=== PATIENT | female | born 2005 | race Caucasian/White ===

== ENCOUNTER 2024-04-27 20:51 | Emergency (ER) | payer OTHER, SELFPAY ==
[2024-04-27 21:00] VITALS: BP 105/69
[2024-04-27 21:17] LABS: Urine Albumin Trace (Neg - Trace); Urine Bilirubin Negative (Negative); Urine Character Clear (Clear); Urine Color Yellow; Urine Glucose Negative (Negative); Urine Ketone Negative (Negative); Urine Leukocyte 1+ (Negative); Urine Nitrite Negative (Negative); Urine Occult Blood 1+ (Negative); Urine Specific Gravity 1.025 (<1.030); Urine Urobilinogen Negative (Neg - 1+)
[2024-04-27 21:42] LABS: Urine Mucus Many
[2024-04-27 21:43] LABS: Urine Bacteria Many (Negative); Urine Red Blood Cell 0-2 /HPF (0-2)
[2024-04-27 21:48] VITALS: BMI 20.2
[2024-04-27 21:49] VITALS: BP 107/74
[2024-04-27 22:00] VITALS: BP 108/62
--- NOTE | 2024-04-27 22:16 | ED.GENMED ---
History of Present Illness
General
Chief Complaint: Urinary Symptoms
Source: patient
Exam Limitations: none
Time Seen by Provider: 04/27/24 21:42
Nursing documentation reviewed up to this point in time: agreed with
History of Present Illness
History of Present Illness:
Patient to ED with complaint of pain with urination x 1 week. Has had UTI's in past, symptoms similar. Denies fever, reports feeling chilled. No n/v. No other complaints. SHe requests STD testing. No known exposure, just wants urine checked.
Past History
Past History
ED Past Medical History: None
ED Past Surgical History: None
Review of Systems
Review of Systems
Allergies reviewed?: Yes
All Other Systems: ROS reviewed and negative except as documented in HPI and ROS
Constitutional: Reports no symptoms
EENT: Reports no symptoms
Respiratory: Reports no symptoms
Cardiac: Reports no symptoms
ABD/GI: Reports no symptoms
: Reports dysuria, frequency and urgency
Musculoskeletal: Reports no symptoms
Skin: Reports no symptoms
Neurological: Reports no symptoms
Psychiatric: Reports no symptoms
Phy Exam
General Physical Exam
General Presentation: well appearing and no apparent distress
General age: appears stated age
General Skin: warm and dry
General Habitus: normal
General Mental: alert
General Hydration: appears well hydrated
Gastrointestinal Exam
Gastrointestinal Exam: normal bowel sounds, non tender, soft, no organomegaly, non distended and no cva tenderness
Musculoskeletal Exam
Musculoskeletal Exam: full ROM and neuro vasc intact
Skin Exam
Skin Exam: normal color, warm/dry and no rash
Psychiatric Exam
Psychiatric Exam: normal mood/affect
Course
Orders/Labs/Results
Orders:
Orders
04/27/24 21:10
Urinalysis Reflex To Culture Urgent
Date Specimen was Collected: 04/27/24
Time Specimen was Collected: 21:05
Urine Microscopic Reflex Cult Urgent
Chlamydia/GC by PCR Urgent
SAMUEL Source: Urine
Specimen Description:
Source:: URINE
Date Specimen was Collected: 04/27/24
Time Specimen was Collected: 21:05
Urine Culture Urgent
SAMUEL Source: U
Specimen Description:
Date Specimen was Collected: 04/27/24
Time Specimen was Collected: 21:05
04/27/24 22:13
Ciprofloxacin HCl [Cipro] 250 mg PO NOW STA
Abnormal Lab Results
04/27/24
21:10
Ur Occult Blood Reflex 1+ A
(Negative)
Leukocyte Esterase Rfl 1+ A
(Negative)
Urine WBC (Reflex) 11-15 A /HPF
(0-5)
Urine Bacteria (Reflex) Many A
(Negative)
Vital Signs
Initial and Last Documented VS:
Initial Vital Signs
Temp Pulse Resp BP Pulse Ox
98.6 F 80 18 105/69 100
04/27/24 21:00 04/27/24 21:00 04/27/24 21:00 04/27/24 21:00 04/27/24 21:00
Last Documented Vital Signs
Temp Pulse Resp BP Pulse Ox
98.6 F 80 18 108/62 100
04/27/24 21:00 04/27/24 21:00 04/27/24 21:00 04/27/24 22:00 04/27/24 21:00
*Critical Care Note
Total Time (30-74mins, 75-104mins- exclusive of procedures): Not Applicable
ED Attending Note
-
Portions of this chart may have been created with voice recognition software.� Occasional wrong word or��sound alike� substitutions may have occurred due to the inherent limitations of voice recognition software.
Discharge Plan
Departure
Patient Disposition: Home (Routine Discharge)
Date of Disposition: 04/27/24
Time of Disposition: 22:14
Patient with high blood pressure during this ER visit?: No
Condition: Good
Covid-19: Not Applicable
Discharge Problem:
UTI (urinary tract infection)
Instructions: Urinary Tract Infection, Adult (DC)
Prescriptions:
New
ciprofloxacin HCl [Cipro] 250 mg tablet
250 mg PO BID Qty: 10 0RF
Activity Restrictions/Additional Instructions:
Follow up with your family doctor. Return to the emergency department immediately for fever/chills, increasing pain, vomiting, or for any further concerns.
Interventions
Interventions:
*Risk Screen - Suicide Last Done: 04/27/24 21:00
*General Assessment Last Done: 04/27/24 21:00
*Neglect/Abuse Screening Last Done: 04/27/24 21:00
ED- Fall Risk Assessment Last Done: 04/27/24 21:48
*ED COVID-19 Vaccine History Last Done: 04/27/24 21:48
*Nursing Disposition Last Done: 04/27/24 22:16
ED-Female Genitourinary Assessment Last Done: 04/27/24 21:48
Discharge Date and Time
Print Language: NAURUAN
[2024-04-27] MEDS: CIPRO 250 MG PO (22:20)
== END 2024-04-27 22:27 | disposition home or self-care (01) ==
LOC: EMR 20:51
PROVIDERS: EMERGENCY PHYSICIAN Emergency Medicine
DX: N39.0 Urinary tract infection, site not specified (principal)
CPT/HCPCS: 99283; 81003; 81015; 87086; 87491; 87591